=== PATIENT | male | born 1970 ===

== ENCOUNTER 2018-06-26 09:35 | Emergency (ER) | payer OTHER ==
[~2018-06-26] VITALS: Ht 180.3 cm; Wt 104.3 kg
[~2018-06-26 09:35] MED LIST: CIPRO500 MG PO; LEVSINEX0.375 M1 PO
== END 2018-06-26 15:00 | disposition home or self-care (01) ==
LOC: ER 09:35
DX: S96.812A Strain of other specified muscles and tendons at ankle and foot level, left foot, initial encounter (principal); X50.3XXA Overexertion from repetitive movements, initial encounter; Y93.89 Activity, other specified; Y92.89 Other specified places as the place of occurrence of the external cause; Y99.8 Other external cause status

== ENCOUNTER 2018-08-11 15:34 | Emergency (ER) | payer OTHER ==
[~2018-08-11] VITALS: Ht 180.3 cm; Wt 108.9 kg
[2018-08-11] MEDS ORDERED: TRAMADOL HCL50 MG PO (18:38)
[2018-08-11] MEDS ORDERED: CYCLOBENZAPRINE10 MG PO (18:38)
[2018-08-11] MEDS ORDERED: IBUPROFEN800 MG PO (18:38)
== END 2018-08-11 18:53 | disposition home or self-care (01) ==
LOC: ER 15:34
DX: M62.830 Muscle spasm of back (principal)

== ENCOUNTER 2018-11-26 16:22 | Emergency (ER) | payer OTHER ==
[~2018-11-26] VITALS: Ht 180.3 cm; Wt 104.3 kg
[~2018-11-26 16:22] MED LIST changes: +CYCLOBENZAPRINE10 MG PO; +IBUPROFEN800 MG PO; +TRAMADOL HCL50 MG PO
== END 2018-11-26 20:15 | disposition home or self-care (01) ==
LOC: ER 16:22
DX: S93.491A Sprain of other ligament of right ankle, initial encounter (principal); X50.0XXA Overexertion from strenuous movement or load, initial encounter; Y93.89 Activity, other specified; Y92.89 Other specified places as the place of occurrence of the external cause; Y99.8 Other external cause status